=== PATIENT | male | born 1965 | race Caucasian/White ===

== ENCOUNTER 2022-08-28 22:34 | Emergency (ER) | payer MEDICAID ==
[~2022-08-28] VITALS: Ht 160 cm; Wt 80.0 kg
[~2022-08-28 22:34] MED LIST: HYDR-4723 PO; IBUP-2076 PO; METF-1185 PO; METO50 PO
[2022-08-28 22:48] VITALS: BP 139/75
== END 2022-08-28 22:51 | disposition left against medical advice (07) ==
LOC: EMS 22:35
DX: S61.303A Unspecified open wound of left middle finger with damage to nail, initial encounter (principal); Z53.21 Procedure and treatment not carried out due to patient leaving prior to being seen by health care provider; W45.8XXA Other foreign body or object entering through skin, initial encounter; Y93.89 Activity, other specified; Y92.89 Other specified places as the place of occurrence of the external cause; Y99.8 Other external cause status

== ENCOUNTER 2023-02-27 14:26 | Inpatient (IN) | payer MEDICAID ==
[~2023-02-27] VITALS: Ht 157.5 cm; Wt 88.0 kg
[~2023-02-27 14:26] MED LIST changes: +APIX5TAB PO; +DIGO125T84 PO; +DILT120C89 PO; +FURO20 PO; -HYDR-4723 PO; -IBUP-2076 PO; +LOSA25TA2 PO; +METO25XL PO; -METO50 PO; +SPIR-37 PO
[2023-02-27] MEDS ORDERED: DILTIAZEM HCL 5 MG/ML 5 ML VIAL IVP ONE (15:00)
[2023-02-27] MEDS ORDERED: DILTIAZEM HCL 125 MG in DEXTROSE 5%-WATER 100 ML IV PRN (15:30)
[2023-02-27 15:33] LABS: BASOPHILS % (AUTO) 0.8 % (0.0-2.0); EOSINOPHILS % (AUTO) 0.4 % (1.0-6.0); HEMATOCRIT 42.5 % (41-53); HEMOGLOBIN 13.8 g/dL (13.5-17.5); LYMPHOCYTES # (AUTO) 1.4 K/uL (1.0-4.8); MEAN CORPUSCULAR HEMOGLOBIN 29.9 pg (26.0-34.0); MEAN CORPUSCULAR HGB CONC 32.6 G/dL (31.0-37.0); MEAN CORPUSCULAR VOLUME 92 fL (80-100); MONOCYTES # (AUTO) 0.7 K/uL (0.1-1.0); NEUTROPHILS # (AUTO) 7.1 K/uL (1.8-7.7); NEUTROPHILS % (AUTO) 75.8 % (40.0-70.0); PLATELET COUNT (AUTO) 207 K/uL (150-450); RED BLOOD CELL COUNT(AUTO) 4.64 MIL/uL (4.50-5.90); RED CELL DISTRIBUTION WIDTH 14.9 % (11.5-14.5)
[2023-02-27 15:42] LABS: ANION GAP 13 mmol/L (8-16); CALCIUM, TOTAL 8.1 mg/dL (8.8-10.5); CARBON DIOXIDE 24 mmol/L (22-29); CHLORIDE 101 mmol/L (98-107); CREATININE 0.88 mg/dL (0.60-1.30); GLOMERULAR FILTR. RATE CALC > 60 mL/min (>60); GLUCOSE,RANDOM 159 mg/dL (70-110); POTASSIUM 3.7 mmol/L (3.5-5.1); SODIUM SERUM 137 mmol/L (136-145)
[2023-02-27 15:45] LABS: INR 1.5 (0.9-1.1); PROTHROMBIN TIME 15.3 SEC (9.4-11.6)
[2023-02-27] MEDS ORDERED: LABETALOL HCL 5 MG/ML 20 ML VIAL IVP ONE (15:45)
[2023-02-27] MEDS ORDERED: METOPROLOL TARTRATE 5 MG/5 ML VIAL IVP ONE (15:45)
[2023-02-27 15:47] LABS: DIGOXIN 0.29 ng/mL (0.90-2.00)
[2023-02-27 15:48] LABS: B-TYPE NATRIURETIC PEPTIDE 562 pg/mL (0-100)
[2023-02-27 16:08] LABS: ALANINE AMINOTRANSFERASE 24 U/L (12-78); ALKALINE PHOSPHATASE 144 U/L (46-116); ASPARTATE AMINOTRANSFERASE 46 U/L (15-37); BILIRUBIN,TOTAL 1.1 mg/dL (0.1-1.0); CREATINE KINASE, TOTAL ONLY 88 U/L (39-308); TOTAL PROTEIN, SERUM 6.9 g/dL (6.4-8.2)
[2023-02-27] MEDS: FUROSEMIDE 20 MG TABLET PO SCH (17:16)
[2023-02-27] MEDS ORDERED: DEXTROSE 50%-WATER 25 GM/50 ML SYRINGE IVP PRN (21:00)
[2023-02-27] MEDS ORDERED: ACETAMINOPHEN 325 MG TABLET PO PRN (21:00)
[2023-02-27] MEDS ORDERED: BISACODYL 10 MG RECTAL RECTAL SUPPOSITORY PR PRN (21:00)
[2023-02-27] MEDS ORDERED: ALBUTEROL SULFATE 2.5 MG/0.5 ML NEB SOLUTION NEB PRN (21:00)
[2023-02-27] MEDS ORDERED: MAGNESIUM HYDROXIDE SUSPENSION 30 ML UDCUP PO PRN (21:00)
[2023-02-27] MEDS ORDERED: IPRATROPIUM BROMIDE 0.5 MG/2.5 ML NEB SOLUTION NEB PRN (21:00)
[2023-02-27] MEDS ORDERED: MORPHINE SULFATE 2 MG/ML SYRINGE IVP PRN (21:00)
[2023-02-27 21:41] LABS: GLUCOMETER DEV NAME(LOC) ER.6; GLUCOSE,POINT OF CARE 162 MG/DL (70-110)
[2023-02-27] MEDS: ONDANSETRON HCL 4 MG/2 ML VIAL IVP PRN (21:41)
[2023-02-27] MEDS: APIXABAN 5 MG TABLET PO SCH (21:54)
[2023-02-27 23:47] VITALS: BP 98/57; PULSE 78; RESP 18; TEMP 97.9
[2023-02-27] MEDS: ZOLPIDEM TARTRATE 5 MG TABLET PO PRN (23:56)
[2023-02-27] MEDS: METOPROLOL SUCCINATE 50 MG ER TABLET PO SCH (23:57)
[2023-02-28] VITALS (7 sets, daily range): BP systolic 103–130; BP diastolic 64–77; PULSE 89–118; RESP 18–20; TEMP 97.6–98.2
[2023-02-28] MEDS ORDERED: HEPARIN SODIUM,PORCINE 5,000 UNITS/ML VIAL SQ SCH
[2023-02-28 00:46] LABS: GLUCOMETER DEV NAME(LOC) 5N.2C; GLUCOSE,POINT OF CARE 143 MG/DL (70-110)
[2023-02-28] MEDS: INSULIN LISPRO 100 UNITS/ML SQ PRN (05:52)
[2023-02-28 06:06] LABS: GLUCOMETER DEV NAME(LOC) 5S.2C; GLUCOSE,POINT OF CARE 162 MG/DL (70-110)
[2023-02-28 06:15] LABS: BASOPHILS % (AUTO) 0.5 % (0.0-2.0); EOSINOPHILS % (AUTO) 0 % (1.0-6.0); HEMATOCRIT 44.7 % (41-53); LYMPHOCYTES # (AUTO) 1.2 K/uL (1.0-4.8); LYMPHOCYTES % (AUTO) 8.1 % (22.0-44.0); MEAN CORPUSCULAR HGB CONC 31.4 G/dL (31.0-37.0); MEAN CORPUSCULAR VOLUME 92 fL (80-100); MONOCYTES # (AUTO) 1.3 K/uL (0.1-1.0); MONOCYTES % (AUTO) 8.2 % (2.0-9.0); NEUTROPHILS # (AUTO) 12.8 K/uL (1.8-7.7); NEUTROPHILS % (AUTO) 83.2 % (40.0-70.0); PLATELET COUNT (AUTO) 231 K/uL (150-450); RED BLOOD CELL COUNT(AUTO) 4.85 MIL/uL (4.50-5.90); RED CELL DISTRIBUTION WIDTH 15.2 % (11.5-14.5)
[2023-02-28 06:37] LABS: CREATININE 1.73 mg/dL (0.60-1.30); POTASSIUM 5.1 mmol/L (3.5-5.1)
[2023-02-28] MEDS: FUROSEMIDE 20 MG TABLET PO SCH (09:21)
[2023-02-28] MEDS: APIXABAN 5 MG TABLET PO SCH (09:21)
[2023-02-28] MEDS: METOPROLOL SUCCINATE 50 MG ER TABLET PO SCH ×2 (09:21→20:26)
[2023-02-28] MEDS: PANTOPRAZOLE SODIUM 40 MG/VIAL IVP SCH (09:21)
[2023-02-28] MEDS: BENZONATATE 100 MG CAPSULE PO PRN (13:06)
[2023-02-28 16:06] LABS: GLUCOMETER DEV NAME(LOC) 5S.1B; GLUCOSE,POINT OF CARE 157 MG/DL (70-110)
[2023-02-28] MEDS: ONDANSETRON HCL 4 MG/2 ML VIAL IVP PRN (16:33)
[2023-02-28] MEDS ORDERED: DILTIAZEM HCL 30 MG TABLET PO ONE (18:30)
[2023-02-28] MEDS: DIGOXIN 125 MCG TABLET PO SCH (19:26)
[2023-02-28] MEDS: APIXABAN 2.5 MG TABLET PO SCH (20:26)
[2023-02-28] MEDS: ZOLPIDEM TARTRATE 5 MG TABLET PO PRN (20:31)
[2023-02-28 23:46] LABS: GLUCOMETER DEV NAME(LOC) 5N.1C; GLUCOSE,POINT OF CARE 127 MG/DL (70-110)
[2023-03-01] VITALS (7 sets, daily range): BP systolic 97–121; BP diastolic 53–87; PULSE 60–108; RESP 18–20; TEMP 96.7–98.1
[2023-03-01 03:17] LABS: GLUCOMETER DEV NAME(LOC) 5S.2C; GLUCOSE,POINT OF CARE 156 MG/DL (70-110)
[2023-03-01 06:41] LABS: BASOPHILS % (AUTO) 0.4 % (0.0-2.0); EOSINOPHILS % (AUTO) 0.6 % (1.0-6.0); HEMATOCRIT 43.9 % (41-53); HEMOGLOBIN 14.4 g/dL (13.5-17.5); LYMPHOCYTES # (AUTO) 2.4 K/uL (1.0-4.8); LYMPHOCYTES % (AUTO) 21.7 % (22.0-44.0); MEAN CORPUSCULAR HGB CONC 32.7 G/dL (31.0-37.0); MEAN CORPUSCULAR VOLUME 92 fL (80-100); MONOCYTES % (AUTO) 9.4 % (2.0-9.0); NEUTROPHILS # (AUTO) 7.5 K/uL (1.8-7.7); NEUTROPHILS % (AUTO) 67.9 % (40.0-70.0); PLATELET COUNT (AUTO) 222 K/uL (150-450); RED BLOOD CELL COUNT(AUTO) 4.79 MIL/uL (4.50-5.90); RED CELL DISTRIBUTION WIDTH 15.4 % (11.5-14.5)
[2023-03-01 07:08] LABS: CREATININE 1.66 mg/dL (0.60-1.30); POTASSIUM 4.2 mmol/L (3.5-5.1)
[2023-03-01 08:06] LABS: GLUCOMETER DEV NAME(LOC) 5S.2C; GLUCOSE,POINT OF CARE 121 MG/DL (70-110)
[2023-03-01] MEDS: APIXABAN 2.5 MG TABLET PO SCH ×2 (08:08→20:21)
[2023-03-01] MEDS: PANTOPRAZOLE SODIUM 40 MG/VIAL IVP SCH (08:08)
[2023-03-01] MEDS: HYDROCODONE/ACETAMINOPHEN 5-325 MG TABLET PO PRN ×3 (08:08→17:42)
[2023-03-01] MEDS: MULTIVITAMINS, THERAPEUTIC TABLET PO SCH (08:08)
[2023-03-01] MEDS: METOPROLOL SUCCINATE 50 MG ER TABLET PO SCH ×2 (08:08→20:54)
[2023-03-01] MEDS: DIGOXIN 125 MCG TABLET PO SCH (08:08)
[2023-03-01] MEDS: DILTIAZEM HCL CD 120 MG ER CAPSULE PO SCH (08:08)
[2023-03-01] MEDS: INSULIN LISPRO 100 UNITS/ML SQ PRN ×2 (12:36→17:40)
[2023-03-01 13:01] LABS: GLUCOMETER DEV NAME(LOC) 5N.2C; GLUCOSE,POINT OF CARE 193 MG/DL (70-110)
[2023-03-01] MEDS ORDERED: MELATONIN 3 MG TABLET PO ONE (21:00)
[2023-03-01] MEDS: BENZONATATE 100 MG CAPSULE PO PRN (21:11)
[2023-03-01 21:56] LABS: GLUCOMETER DEV NAME(LOC) 5S.1B; GLUCOSE,POINT OF CARE 128 MG/DL (70-110)
[2023-03-02] VITALS (7 sets, daily range): BP systolic 104–116; BP diastolic 60–80; PULSE 64–97; RESP 18–20; TEMP 97.6–98.1
[2023-03-02 05:57] LABS: BASOPHILS % (AUTO) 0.7 % (0.0-2.0); EOSINOPHILS % (AUTO) 0.8 % (1.0-6.0); HEMATOCRIT 45.1 % (41-53); HEMOGLOBIN 14.9 g/dL (13.5-17.5); LYMPHOCYTES # (AUTO) 2.4 K/uL (1.0-4.8); LYMPHOCYTES % (AUTO) 21.5 % (22.0-44.0); MEAN CORPUSCULAR VOLUME 91 fL (80-100); MONOCYTES # (AUTO) 1.2 K/uL (0.1-1.0); MONOCYTES % (AUTO) 10.5 % (2.0-9.0); NEUTROPHILS # (AUTO) 7.4 K/uL (1.8-7.7); NEUTROPHILS % (AUTO) 66.5 % (40.0-70.0); PLATELET COUNT (AUTO) 208 K/uL (150-450); RED BLOOD CELL COUNT(AUTO) 4.95 MIL/uL (4.50-5.90); RED CELL DISTRIBUTION WIDTH 15.6 % (11.5-14.5)
[2023-03-02 06:03] LABS: APPEARANCE,URINE CLEAR (CLEAR); BILIRUBIN,URINE NEGATIVE (NEGATIVE); GLUCOSE, URINE (UA) NEGATIVE (NEGATIVE); KETONES,URINE NEGATIVE (NEGATIVE); LEUKOCYTE ESTERASE ,URINE NEGATIVE (NEGATIVE); NITRATE,URINE NEGATIVE (NEGATIVE); OCCULT BLOOD,URINE NEGATIVE (NEGATIVE); PROTEIN,URINE TRACE mg/dL (NEGATIVE); SPECIFIC GRAVITIY, URINE 1.008 (1.003-1.030)
[2023-03-02 06:07] LABS: CALCIUM, TOTAL 7.7 mg/dL (8.8-10.5); CREATININE 1.59 mg/dL (0.60-1.30); POTASSIUM 4.1 mmol/L (3.5-5.1)
[2023-03-02 06:10] LABS: AMPHET/METH SCREEN,URINE NEGATIVE (NEGATIVE); BARBITURATE SCREEN, URINE NEGATIVE (NEGATIVE); BENZODIAZEPINES SCREEN,URINE POSITIVE (NEGATIVE); CANNABINOID SCREEN,URINE NEGATIVE (NEGATIVE); COCAINE SCREEN,URINE NEGATIVE (NEGATIVE); METHADONE SCREEN, URINE NEGATIVE (NEGATIVE); OPIATE SCREEN,URINE NEGATIVE (NEGATIVE); PHENCYCLIDINE SCREEN,URINE NEGATIVE (NEGATIVE)
[2023-03-02] MEDS: MULTIVITAMINS, THERAPEUTIC TABLET PO SCH (07:58)
[2023-03-02] MEDS: METOPROLOL SUCCINATE 50 MG ER TABLET PO SCH ×2 (07:58→20:19)
[2023-03-02] MEDS: PANTOPRAZOLE SODIUM 40 MG/VIAL IVP SCH (07:58)
[2023-03-02] MEDS: DILTIAZEM HCL CD 120 MG ER CAPSULE PO SCH (07:58)
[2023-03-02] MEDS: APIXABAN 2.5 MG TABLET PO SCH ×2 (07:58→20:19)
[2023-03-02] MEDS: DIGOXIN 125 MCG TABLET PO SCH (07:58)
[2023-03-02 08:06] LABS: GLUCOMETER DEV NAME(LOC) 5S.2C; GLUCOSE,POINT OF CARE 144 MG/DL (70-110)
[2023-03-02 08:06] LABS: GLUCOMETER DEV NAME(LOC) 5S.2C; GLUCOSE,POINT OF CARE 197 MG/DL (70-110)
[2023-03-02 08:06] LABS: GLUCOMETER DEV NAME(LOC) 5S.2C; GLUCOSE,POINT OF CARE 224 MG/DL (70-110)
[2023-03-02] MEDS: SODIUM CHLORIDE 1 GM TABLET PO SCH ×2 (12:00→20:19)
[2023-03-02] MEDS: INSULIN LISPRO 100 UNITS/ML SQ PRN ×3 (12:04→20:20)
[2023-03-02 12:21] LABS: GLUCOMETER DEV NAME(LOC) 5S.2C; GLUCOSE,POINT OF CARE 143 MG/DL (70-110)
[2023-03-02 18:01] LABS: GLUCOMETER DEV NAME(LOC) 5N.2C; GLUCOSE,POINT OF CARE 157 MG/DL (70-110)
[2023-03-02] MEDS: ZOLPIDEM TARTRATE 5 MG TABLET PO PRN (20:19)
[2023-03-03 01:36] LABS: GLUCOMETER DEV NAME(LOC) 5N.2C; GLUCOSE,POINT OF CARE 178 MG/DL (70-110)
[2023-03-03 03:22] VITALS: BP 107/58; PULSE 91; RESP 18; TEMP 97.9
[2023-03-03 07:04] LABS: BASOPHILS % (AUTO) 0.6 % (0.0-2.0); EOSINOPHILS % (AUTO) 1.1 % (1.0-6.0); HEMATOCRIT 49.2 % (41-53); HEMOGLOBIN 15.9 g/dL (13.5-17.5); LYMPHOCYTES # (AUTO) 1.5 K/uL (1.0-4.8); MEAN CORPUSCULAR HEMOGLOBIN 29.5 pg (26.0-34.0); MEAN CORPUSCULAR HGB CONC 32.4 G/dL (31.0-37.0); MEAN CORPUSCULAR VOLUME 91 fL (80-100); MONOCYTES # (AUTO) 0.6 K/uL (0.1-1.0); MONOCYTES % (AUTO) 7.1 % (2.0-9.0); NEUTROPHILS # (AUTO) 6.6 K/uL (1.8-7.7); NEUTROPHILS % (AUTO) 74.2 % (40.0-70.0); PLATELET COUNT (AUTO) 269 K/uL (150-450); RED CELL DISTRIBUTION WIDTH 15.3 % (11.5-14.5)
[2023-03-03 07:10] LABS: ANION GAP 10 mmol/L (8-16); ANION GAP 9 mmol/L (8-16); CALCIUM, TOTAL 8.1 mg/dL (8.8-10.5); CARBON DIOXIDE 30 mmol/L (22-29); CHLORIDE 100 mmol/L (98-107); CHLORIDE 99 mmol/L (98-107); CREATININE 0.88 mg/dL (0.60-1.30); GLOMERULAR FILTR. RATE CALC > 60 mL/min (>60); GLUCOSE,RANDOM 144 mg/dL (70-110); GLUCOSE,RANDOM 146 mg/dL (70-110); POTASSIUM 3.5 mmol/L (3.5-5.1); POTASSIUM 3.6 mmol/L (3.5-5.1); SODIUM SERUM 139 mmol/L (136-145)
[2023-03-03 07:21] LABS: GLUCOMETER DEV NAME(LOC) 5S.1B; GLUCOSE,POINT OF CARE 139 MG/DL (70-110)
[2023-03-03 07:31] VITALS: BP 125/73; PULSE 96; RESP 19; TEMP 98.8
[2023-03-03] MEDS: SODIUM CHLORIDE 1 GM TABLET PO SCH (08:32)
[2023-03-03] MEDS: DILTIAZEM HCL CD 120 MG ER CAPSULE PO SCH (08:33)
[2023-03-03] MEDS: APIXABAN 2.5 MG TABLET PO SCH (08:33)
[2023-03-03] MEDS: METOPROLOL SUCCINATE 50 MG ER TABLET PO SCH (08:33)
[2023-03-03] MEDS: MULTIVITAMINS, THERAPEUTIC TABLET PO SCH (08:34)
[2023-03-03] MEDS: PANTOPRAZOLE SODIUM 40 MG/VIAL IVP SCH (08:34)
[2023-03-03] MEDS: DIGOXIN 125 MCG TABLET PO SCH (08:34)
== END 2023-03-03 10:50 | disposition home or self-care (01) | DRG 194 ==
LOC: EMS 14:34 → 5S 18:50
PROVIDERS: ADMIT Hospitalist; ATTEND Hospitalist
PROC: 0W9G3ZZ Drainage of Peritoneal Cavity, Percutaneous Approach (ICD-10-PCS; principal; 2023-03-01)
DX: I11.0 Hypertensive heart disease with heart failure (principal); N17.9 Acute kidney failure, unspecified; D68.9 Coagulation defect, unspecified; I48.19 Other persistent atrial fibrillation; E87.1 Hypo-osmolality and hyponatremia; R18.8 Other ascites; E11.9 Type 2 diabetes mellitus without complications; G40.909 Epilepsy, unspecified, not intractable, without status epilepticus; I50.43 Acute on chronic combined systolic (congestive) and diastolic (congestive) heart failure; F10.10 Alcohol abuse, uncomplicated; K74.60 Unspecified cirrhosis of liver; E66.01 Morbid (severe) obesity due to excess calories; I08.1 Rheumatic disorders of both mitral and tricuspid valves; Z79.01 Long term (current) use of anticoagulants; Z91.199 Patient's noncompliance with other medical treatment and regimen due to unspecified reason; Z91.128 Patient's intentional underdosing of medication regimen for other reason; Z91.148 Patient's other noncompliance with medication regimen for other reason; Z79.899 Other long term (current) drug therapy; Z68.35 Body mass index [BMI] 35.0-35.9, adult
CPT/HCPCS: 49083; 71045; 76700; 76942; 80048; 80053; 80162; 80307; 81003; 82550; 82962; 83880; 84484; 85025; 85610; 85730; 87081; 93005; 99291; C9113; G0378; G0480; J2405; J3490; J7060; 36415-L1; 36415-TC